=== PATIENT | male | born 1980 | race Caucasian/White ===

== ENCOUNTER 2018-10-06 10:26 | Emergency (ER) | payer OTHER ==
[~2018-10-06] VITALS: Ht 167.6 cm; Wt 121.4 kg
[~2018-10-06 10:26] MED LIST: IRBE300T15 PO
[2018-10-06 10:28] VITALS: Ht 167.6 cm; Wt 121.4 kg
--- NOTE | 2018-10-06 10:53 | ERD ---
ER Documentation Chief Complaint Chief Complaint medication refill HPI This is a 37-year-old male with a past medical history of hypertension, noncompliant on his hypertension medications due to running out 1 month ago who is presenting with elevated blood pressure and a desire for medication refill. The patient reports checking his blood pressure today. His systolic number was over 200. The patient's mother works in healthcare and instructed him to go to the emergency department to get his medications refilled. The patient feels well and has no symptoms currently. He denies headache or vision changes. He denies nausea or vomiting. He denies chest pain or trouble breathing. He has not been lightheaded or dizzy. He denies any episodes of diaphoresis. He denies any focal deficits. He has no weakness or numbness or tingling to the face or extremities. The patient denies feeling sick recently. The patient denies fever or chills. The patient does not endorse neck or back pain. The patient denies abdominal pain. The patient denies changes to bowel movements or urination. The patient has had no focal deficits. The patient has had no weakness or numbness or tingling to the face or extremities. ROS All systems reviewed and are negative except as per history of present illness. Medications Home Meds Active Scripts Irbesartan* (Irbesartan*) 300 Mg Tablet, 300 MG PO DAILY for 30 Days, TAB Prov:JAG HENSLEY MD 10/06/18 Allergies Allergies: Coded Allergies: No Known Allergy (Unverified , 10/06/18) PMhx/Soc Medical and Surgical Hx: pt denies Surgical Hx History of Surgery: Yes (Appendectomy) Anesthesia Reaction: No Hx Neurological Disorder: No Hx Respiratory Disorders: No Hx Cardiac Disorders: Yes (HTN) Hx Psychiatric Problems: No Hx Miscellaneous Medical Probl: No Hx Alcohol Use: No Hx Substance Use: No Hx Tobacco Use: No Smoking Status: Never smoker FmHx Family History: No diabetes Physical Exam Vitals Vital Signs Date Temp Pulse Resp B/P (MAP) Pulse Ox O2 O2 Flow FiO2 Time Delivery Rate 10/06/18 105 18 186/111 100 Room Air 12:13 (136) 10/06/18 100 18 177/118 100 Room Air 10:51 (137) 10/06/18 100 18 177/118 100 Room Air 10:42 (137) 10/06/18 97.6 103 20 220/138 96 10:28 (165) Physical Exam Const: No apparent distress, well-developed, well-nourished Head: Normocephalic, Atraumatic Eyes: Normal Conjunctiva. Extraocular movements grossly intact. ENT: Normal External Ears, Nose and Mouth. Neck: Full range of motion. No meningismus. Resp: Clear to auscultation bilaterally, No wheezes, rales or rhonchi Cardio: Regular rate and rhythm. No murmurs, rubs or gallops Abd: Soft, non tender, non distended. Normal bowel sounds Skin: No petechiae or rashes Back: No midline tenderness. No CVA tenderness Ext: No cyanosis, or edema Neur: Awake and alert, oriented 4. Cranial nerves grossly intact. No facial droop. Normal strength, sensation and coordination. Psych: Normal Mood and Affect Results 24 hrs Current Medications Medications Dose Sig/Steffanie Start Time Status Last (Trade) Ordered Route PRN Stop Time Admin Dose Reason Admin Nicardipine 30 mg ONCE ONCE 10/06/18 DC 10/06/18 HCl PO 11:00 10/06/18 10:53 (Cardene) 11:01 Procedures/MDM MDM The patient's presentation warrants further investigation. Previous medical records, if available, were reviewed. EKG EKG read by me: Rate/Rhythm: Mild sinus tachycardia at 104 bpm Intervals: Normal [place]: Normal Impression: Nonspecific repolarization changes without evidence of acute ischemia. Mild sinus tachycardia. TREATMENT/DISPOSITION The patient presents for elevated blood pressure and medication noncompliance and need of medication refill. The patient's initial blood pressure was over 200/110. An EKG was performed that did not reveal acute ischemia. He has no symptoms. I do not suspect acute coronary syndrome. The patient was otherwise stable with no evidence of hypertensive urgency or emergency. The patient does not require admission for blood pressure control. That said, I do feel that the patient requires a dose of Cardene in the ER to improve his blood pressure. The patient's blood pressure improved to 183/110. I do not want to treat his blood pressure too aggressively in the emergency department, as I do suspect that this is chronic. I do not want to cause a stroke from bringing down the blood pressure too fast. I have discussed with the patient the risks of hypertension. I refilled his blood pressure medications. He understands the importance of compliance and close follow-up. I have instructed the patient to return to the ER for any new or worsening symptoms including chest pain, shortness of breath, headache, blurred vision, confusion, nausea, vomiting or LOC. I have advised the patient to follow up with the primary care physician for outpatient monitoring and treatment for hypertension in 1-3 days. The patient endorses no symptoms. The patient has clear lungs with full breath sounds. I do not suspect pneumonia or pneumothorax or pleural effusions or pulmonary edema. He does not have signs or symptoms concerning for thoracic aortic aneurysm or dissection. The patient has no crepitus or pain or signs concerning for esophageal tear or rupture. The patient does not have pulses paradoxus. His heart sounds are not muffled. I do not suspect pericardial effusion or tamponade. I have decreased suspicion of viscus perforation possible referred pain. The patient does not have a history of heart failure and I have low suspicion for this. The patient does not have a diagnosis of COPD and is not wheezing today. The patient is not tachypneic or hypoxic. The patient is breathing comfortably and without pleuritic pain. The patient is not on hormonal therapy. The patient has no history of clotting or bleeding disorders. The patient has no calf tenderness. The patient has had no hemoptysis. I have decreased suspicion for PE. DISCHARGE Upon reevaluation of the patient, symptoms have improved. No emergent diagnoses were identified. At this time, I feel that the patient stable for discharge. The patient was instructed to follow-up with a primary care physician in 1-3 days. The patient will be given strict precautions with which to return to the emergency department. Prescriptions: Irbesartan DISCLAIMER Inadvertent spelling and grammatical errors are likely due to EHR/dictation software use and do not reflect on the overall quality of patient care. Note that the electronic time recorded on this note does not necessarily reflect the actual time of the patient encounter. Departure Diagnosis: Primary Impression: Hypertension Hypertension type: essential hypertension Qualified Codes: I10 - Essential (primary) hypertension Additional Impression: Noncompliance with medications Condition: Stable Patient Instructions: High Blood Pressure (Hypertension) Additional Instructions: Thank you for for coming to [facility] for your care today. Please ask your nurse or provider if you have questions about your care today and do not leave until all your questions have been answered. Please use any medications given as directed and follow-up with your doctor (or the doctor you were referred to) in the next 1-3 days. If you do not have a primary care doctor you may follow up at the [facility] or replaced by [facility] (listed below). You may also use motrin and tylenol as needed for fever and/or pain unless instructed otherwise by your provider or nurse. Indications for more urgent follow-up have been discussed, but you may return to the Emergency Department at ANY time for any worrisome or worsening symptoms. If you have abdominal pain, please know that no test or exam you received is perfect and you should follow up within 8 hours for continued pain. If you had any imaging studies today, such as an X-Ray or CT Scan, these studies will be reviewed later by a radiologist. You will be called if there are important findings that were not identified today, so make sure the contact information you provided at registration is correct. If you received any narcotic pain control medicine today, such as Vicodin, Morphine or Dilaudid, your coordination and judgment may be affected for a number of hours. Please do not drive or operate heavy machinery, and you may want someone to assist you at home. If you were given a prescription for narcotic medication, be aware that it is very addictive- use sparingly and only if necessary. PLEASE SEEK FURTHER EVALUATION AND MANAGEMENT AT YOUR DOCTORS OFFICE WITHIN THE NEXT 1-3 DAYS. IT IS YOUR RESPONSIBILITY TO MAKE AN APPOINTMENT FOR FOLOW-UP CARE. IF YOU HAVE A PRIMARY DOCTOR, PLEASE CALL THEIR OFFICE TO SCHEDULE AN APPOINTMENT FOR FOLLOW UP. IF YOU DO NOT HAVE A PRIMARY DOCTOR YOU CAN CALL OUR PHYSICIAN REFERRAL HOTLINE AT IF YOU CAN NOT AFFORD TO SEE A PHYSICIAN YOU CAN CHOSE FROM THE FOLLOWING [facility] CLINICS: [facility] [address] [facility] [address] [facility]. [facility] [address] [facility]. [facility] [address] [facility]. [facility] [address] [facility]. [facility]. [address] JAG BENNETT MD Oct 06, 2018 10:53
[2018-10-06] MEDS ORDERED: NICARDipine HCL 30 MG CAPSULE PO ONE (11:00)
[2018-10-06 12:13] VITALS: BP 186/111; PULSE 105; RESP 18
== END 2018-10-06 12:40 | disposition home or self-care (01) ==
LOC: E/R 10:26
DX: I10 Essential (primary) hypertension (principal); Z76.0 Encounter for issue of repeat prescription; Z91.14 Patient's other noncompliance with medication regimen
CPT/HCPCS: 93005; 99283